=== PATIENT | female | born 1955 | race African-American/Black ===

== ENCOUNTER 2020-12-17 14:13 | Outpatient (CLI) | payer MEDICARE | END 2020-12-17 14:14 | disposition home or self-care (01) | LOC: BICMAMMO 14:13 | PROVIDERS: ATTEND Family Medicine | DX: Z12.31 Encounter for screening mammogram for malignant neoplasm of breast (principal); Z12.2 Encounter for screening for malignant neoplasm of respiratory organs; Z13.820 Encounter for screening for osteoporosis; Z78.0 Asymptomatic menopausal state; F17.210 Nicotine dependence, cigarettes, uncomplicated; M85.852 Other specified disorders of bone density and structure, left thigh; J94.8 Other specified pleural conditions | CPT/HCPCS: 71271; 77063; 77067; 77080 ==